=== PATIENT | male | born 1990 | race Caucasian/White ===

== ENCOUNTER 2019-10-07 16:45 | Inpatient (IN) ==
[2019-10-07 17:35] LABS: Basophils % 0.3 %; Eosinophils # 0.2 K/mcL (0.0-0.6); Eosinophils % 3.1 %; Hematocrit 45.7 % (37.5-50.1); Hemoglobin 15.8 g/dL (12.9-16.9); Immature Granulocytes % 0.5 % (0-4); Lymphocytes # 2.2 K/mcL (0.6-4.6); Lymphocytes % 33.9 %; Mean Corpuscular HGB Conc 34.6 g/dL (31.6-35.5); Mean Corpuscular Hemoglobin 29.2 pg (28.0-33.3); Mean Corpuscular Volume 84.3 fL (83.0-100.0); Mean Platelet Volume 9.6 fL (9.4-12.4); Monocytes # 0.4 K/mcL (0.0-1.3); Monocytes % 6.6 %; Neutrophils # 3.7 K/mcL (1.6-8.9); Platelet Count 220 K/mcL (140-400); Red Blood Count 5.42 M/mcL (4.19-5.50); Red Cell Distribution Width 12.3 % (11.5-14.5); Segmented Neutrophils % 55.6 %; White Blood Count 6.6 K/mcL (4.3-11.1)
[2019-10-07 17:54] LABS: Bilirubin,Urine Negative (Negative); Blood,Urine Negative (Negative); Clarity,Urine Clear (Clear); Color,Urine Light-Yellow (Yellow); Glucose,Urine (UA) Normal (Normal); Ketones,Urine Negative (Negative); Leukocyte Esterase,Urine Negative (Negative); Nitrite,Urine Negative (Negative); PH,Urine 5.5 pH Units (5.0-8.0); Protein,Urine Negative (Neg-Trace); Specific Gravity,Urine 1.026 (1.010-1.025); Urobilinogen,Urine Normal (Normal)
[2019-10-07 17:55] LABS: Acetaminophen < 10 mcg/mL (10-20); Amphetamine Screen,Urine Negative ng/mL (Cutoff=1000); BUN/Creatinine Ratio 15 (6-26); Barbiturate Screen,Urine Negative ng/mL (Cutoff=200); Benzodiazepines Screen,Urine Negative ng/mL (Cutoff=200); Blood Urea Nitrogen 13 mg/dL (6-20); Calcium 8.8 mg/dL (8.6-10.3); Cannabinoid Screen,Urine Positive ng/mL (Cutoff = 50); Carbon Dioxide 27 mEq/L (23-29); Chloride 106 mEq/L (98-107); Cocaine Screen,Urine Negative ng/mL (Cutoff= 300); Ethanol 11 mg/dL (Less than 10); Glucose 106 mg/dL (70-105); Opiate Screen,Urine Negative ng/mL (Cutoff=300); Osmolality,Calculated 291 (280-300); Phencyclidine Screen,Urine Negative ng/mL (Cutoff=25); Potassium 3.8 mEq/L (3.5-5.1); Salicylate < 2.5 mg/dL (15.0-30.0); Sodium 140 mEq/L (136-145); eGFR For African Americans > 60 (> 60); eGFR For Non-African Americans > 60 (> 60)
[2019-10-07 18:08] LABS: Thyroid Stimulating Hormone 1.432 mcIU/mL (0.340-5.600)
[2019-10-07] MEDS ORDERED: hydrOXYzine pamoate 25 MG CAPSULE PO PRN (19:47)
[2019-10-07] MEDS ORDERED: MOM Conc 10 ML UD.LIQ PO PRN (19:47)
[2019-10-07] MEDS ORDERED: Haloperidol Lactate 5 MG/ML VIAL IM PRN (19:47)
[2019-10-07] MEDS ORDERED: haloperidoL 5 MG TABLET PO PRN (19:47)
[2019-10-07] MEDS ORDERED: traZODone 50 MG TABLET PO PRN (19:47)
[2019-10-07] MEDS ORDERED: *HR* LORazepam 2 MG/ML VIAL IM PRN (19:47)
[2019-10-07] MEDS ORDERED: Mag Hydrox/Al Hydrox/Simeth 30 ML UDC PO PRN (19:47)
[2019-10-07] MEDS ORDERED: Ibuprofen 400 MG TABLET PO PRN (19:47)
[2019-10-07] MEDS ORDERED: *HR* LORazepam 1 MG TABLET PO PRN (19:47)
[2019-10-08] MEDS ORDERED: FLUoxetine HCl Oral Soln 20 MG/5 ML UDC PO SCH (12:15)
[2019-10-08] MEDS: ARIPiprazole 5 MG TABLET PO SCH (12:36)
[2019-10-09] MEDS ORDERED: FLUoxetine 20 MG CAPSULE PO SCH (09:00)
[2019-10-09] MEDS: ARIPiprazole 5 MG TABLET PO SCH (09:03)
[2019-10-09 09:04] VITALS: BP 112/74
== END 2019-10-09 12:50 | disposition home or self-care (01) | DRG 885 ==
LOC: EMEROOARM 16:45 → 1ANU 19:44
PROVIDERS: ADMIT Psychiatry & Neurology Psychiatry; ATTEND Psychiatry & Neurology Psychiatry